=== PATIENT | female | born 1980 | race Caucasian/White ===

== ENCOUNTER 2017-10-17 08:31 | Outpatient (CLI) | payer OTHER ==
[2014-12-10 12:19] VITALS: BP 101/77
== END 2017-10-17 08:32 ==
LOC: OUT 08:31
PROVIDERS: ATTEND General Practice
DX: L73.2 Hidradenitis suppurativa (principal)
CPT/HCPCS: 99213

== ENCOUNTER 2017-11-14 08:21 | Outpatient (CLI) | payer OTHER ==
[2014-12-10 12:19] VITALS: BP 101/77
== END 2017-11-14 08:22 ==
LOC: OUT 08:21
PROVIDERS: ATTEND General Practice
DX: L73.2 Hidradenitis suppurativa (principal)
CPT/HCPCS: 99213